=== PATIENT | female | born 1965 | race Caucasian/White ===

== ENCOUNTER 2021-03-18 10:42 | Emergency (ER) | payer BC ==
[~2021-03-18] VITALS: Ht 165.1 cm; Wt 58.5 kg
[2021-03-18 11:04] VITALS: BP 146/99
[2021-03-18] MEDS ORDERED: AMOX-430 PO (11:26)
[2021-03-18] MEDS ORDERED: AMOX/CLAVULANATE 875 MG TABLET PO ONE (11:30)
[2021-03-18] MEDS ORDERED: TDAP [DIPH/PERTUSSIS/TET] 0.5 ML VIAL IM ONE ×2 (11:30→11:35)
[2021-03-18] MEDS ORDERED: AMOX/CLAVULANATE 875 MG TABLET ONE (11:35)
== END 2021-03-18 12:21 | disposition home or self-care (01) ==
LOC: ER 11:47
DX: S61.012A Laceration without foreign body of left thumb without damage to nail, initial encounter (principal); W54.0XXA Bitten by dog, initial encounter; Y93.89 Activity, other specified; Y92.89 Other specified places as the place of occurrence of the external cause; Y99.8 Other external cause status
CPT/HCPCS: 73140-TC; 90715